=== PATIENT | male | born 2005 | race Caucasian/White ===

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

== ENCOUNTER 2025-08-20 17:47 | Emergency (ER) | payer OTHER, SELFPAY ==
--- NOTE | ~2025-08-20 | XR_ITS ---
EXAMINATION: XR shoulder LT min 2V DATE: 08/20/2025 18:25 INDICATION: Left shoulder pain. Injury. TECHNIQUE: 4 views of the left shoulder were obtained. COMPARISON: None. FINDINGS: Fracture or dislocation of the shoulder and AC joint. Soft tissues are unremarkable. IMPRESSION: 1. No acute bony abnormalities of the left shoulder including AC joint. If symptoms are localized and persistent additional evaluation can be considered with MRI. Reviewed, dictated and finalized at location T. PATIAL TECHNOLOGIST IMPRESSION: 1. No acute bony abnormalities of the left shoulder including AC joint. If symp toms are localized and persistent additional evaluation can be considered with MRI.
[2025-08-20 18:03] VITALS: BP 135/61; PULSE 57; RESP 20; TEMP 36.6; O2SAT 100
--- NOTE | 2025-08-20 18:23 | ED_ITS ---
HPI - Extremity Problem General Chief complaint: Extremity Problem,Nontraumatic Stated complaint: shoulder Patient presents to the [facility] with complaints of left shoulder pain. Noted he had an injury about a month and a half ago that was significantly pain for rule for about 2 weeks then slowly started to get better. Patient was doing gentle range of motion exercises and continuing to rest this area. Patient reports last night while wrestling with a friend did have an odd sensation in injury to the shoulder again. No medication remedies attempted for symptoms. Denies numbness or tingling in hands or fingers. Related Data Allergies Allergy/AdvReac Type Severity Reaction Status Date / Time No Known Allergies Allergy Verified 08/20/25 18:02 Review of Systems Constitutional: Constitutional: Reports as per HPI, Denies chills, Denies fatigue, Denies fever(s) and Denies weakness Eyes: Eyes: Reports no additional eye complaints Cardiovascular: Cardiovascular: Reports no additional cardiovascular complaints Respiratory: Respiratory: Reports no additional respiratory complaints Gastrointestinal: Gastrointestinal: Reports no additional gastrointestinal complaints Genitourinary: Genitourinary: Reports no additional male genitourinary complaints Musculoskeletal: Musculoskeletal: Reports as per HPI, Reports arthralgias, Denies joint swelling and Denies muscle cramps Integumentary/Breasts: Skin/Breast: Reports as per HPI, Denies pruritus, Denies erythema and Denies rash Neurologic: Reports as per HPI, Denies vertigo, Denies dizziness, Denies headache(s), Denies numbness and Denies weakness Psychiatric: Psychiatric: Reports no additional psychiatric complaints Endocrine: Endocrine: Reports no additional endocrine complaints Hematologic/Lymphatic: Hematologic/Lymphatic: Reports no additional hematologic/lymphatic complaints Allergic/Immunologic: Allergic/Immunologic: Reports no additional allergic/immunologic complaints [facility] Past Medical History Medical History Folliculitis Adult BMI 33.0-33.9 kg/sq m BMI 39.0-39.9,adult BMI 38.0-38.9,adult Family History Family History Father No problems noted. 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 Gender identity (if verbalized by the patient): Male Exam Const: General: healthy appearing and no acute distress Nutritional Appearance: well nourished Orientation/consciousness: patient oriented x3 Limitations: no limitations Neck: Neck: normal visual inspection and no lymphadenopathy Other: No vertebral tenderness, no paraspinal tenderness no trapezius tenderness Resp: Effort & Inspection: normal respiratory effort Auscultation: clear to auscultation bilaterally Cardio: Rate: regular rate Rhythm: regular rhythm Skin: General skin exam: normal color Rashes: no rashes Wounds: no wounds Extrem: Left upper extremity: shoulder/upper arm inspection abnormal, tenderness, axillary nerve sensory function normal and abnormal ROM; inspection normal, no swelling, no abrasions, no lacerations, no ecchymosis, no crepitus, no foreign bodies, no penetrating wound, no deformity and no unsual warmth Psych: Mental Status: mental status grossly normal Affect: normal affect Attitude: cooperative Course Course Level of Care: Express Care Visit Vital Signs Vital signs: Vital Signs Temperature 97.9 F 08/20/25 18:03 Pulse Rate 57 L 08/20/25 18:03 Respiratory Rate 20 08/20/25 18:03 Blood Pressure 135/61 08/20/25 18:03 Pulse Oximetry 100 08/20/25 18:03 Oxygen Delivery Room Air 08/20/25 18:03 Temperature 97.9 F 08/20/25 18:03 Pulse Rate 57 L 08/20/25 18:03 Respiratory Rate 20 08/20/25 18:03 Blood Pressure 135/61 08/20/25 18:03 Pulse Oximetry 100 08/20/25 18:03 Oxygen Delivery Room Air 08/20/25 18:03 [facility] Narrative Medical decision making narrative: x-rays ordered The patient was evaluated by myself in the express care. History is obtained from patient who is an independent historian and physical exam was performed. Available medical records were reviewed at this time. Exam findings show no acute concerns or changes; patient is non-toxic appearing and is in no distress. Patient is appropriate for outpatient treatment and follow-up. I have evaluated and discussed social determinants of health with the patient that could potentially impact subsequent diagnosis and treatment plans. Differential diagnosis and treatment plan were discussed with the patient. Patient agrees with discussion and after shared medical decision making agrees with plan of care. All questions were answered to the patient's satisfaction. Differential Diagnosis Differential Diagnosis: shoulder dislocation, shoulder sprain, internal derangement, muscle strain Medical Records I have reviewed the following patient records and this information was taken into consideration when formulating the assessment and plan.: previous labs, previous ER visits, previous hospitalizations and previous clinic visits Imaging Data Attestation: I personally reviewed and interpreted this imaging study as follows: My impression: no acute findings Radiologist's impression: IMPRESSION: 1. No acute bony abnormalities of the left shoulder including AC joint. If symptoms are localized and persistent additional evaluation can be considered with MRI. Reviewed, dictated and finalized at location T. IC PATTERN GRADER Discharge Plan Discharge Clinical Impression: Injury of left shoulder Patient Disposition: Home Condition: Stable Instructions: Antibiotic Form, Shoulder Sprain (ED), Exercise Safety (ED), Rotator Cuff Injury Exercises (DC) Additional Instructions: Xray showed no fracture. Minimize activities that aggravate the condition The RICE protocol. Follow the RICE protocol as soon as possible after your injury: Rest your affected limb by using the sling as knee Ice should be immediately applied to keep the swelling down. It can be used for 20 to 30 minutes, three or four times daily. Do not apply ice directly to your skin. Gentle range of motion exercises as tolerated. Elevate affected area above the level of your heart if possible as often as possible during the first 48 hours then as needed for increased swelling. Medication: Nonsteroidal anti-inflammatory drugs (NSAIDs) such as ibuprofen and naproxen can help control pain and swelling. Because they improve function by both reducing swelling and controlling pain, they are a better option for mild sprains than narcotic pain medicines. Please schedule a follow-up visit with your personal physician for further evaluation and treatment within 1week OR If your symptoms persist, change or worsen significantly before you can contact your personal physician then please, without delay, go to the emergency department for further evaluation. Patient Language: Citizen Of [place] Prescriptions: New naproxen 500 mg tablet 500 mg PO BID PRN (Reason: pain) Qty: 30 0RF Follow-up/Referrals: Santi Jung MD [Primary Care Provider, [facility]] Time of Disposition: 18:34
--- OUTSIDE RECORDS SUMMARY | 2025-08-20 19:34 | XMS_ITS | Clinical Summary ---
Author Organization [facility] Address [address] [place] [address] Care Team Providers Care Steam Box Hand Name Role Phone Santi Jung MD Primary Care Provider [phone] Source Comments [facility],non-[facility] Affiliates and Associated Physician Practices is amultiple site organization consisting of ambulatory clinics and hospital sitesin [place], [place], [place] and [place]. This disclosure is being madepursuant to the Care Everywhere program and may not contain all information available regarding this patient. Last updated 18.[facility] Social History Tobacco Use Types Packs/Day Years Used Date Smoking Tobacco: Never Assessed Sex and Gender Information Value Date Recorded Sex Assigned at Not on file Legal Sex Male 1:54 PM CDT Gender Identity Not on file Sexual Orientation Not on file Last Filed Vital Signs Vital Sign Reading Time Taken Comments Blood Pressure - - Pulse - - Temperature - - Respiratory Rate - - Oxygen Saturation - - Inhaled Oxygen Concentration - - Weight 143.6 kg (316 lb 9.3 oz) 06/15/2021 1:00 PM CDT Height 183.5 cm (6' 0.24) 06/15/2021 1:00 PM CD T Body Mass Index 42.65 06/15/2021 1:00 PM CDT Plan of Treatment Health Maintenance Due Date Last Done Comments HIV SCREENING 2020 HPV VACCINE (1 - Male 3-dose series) 2020 MENINGOCOCCAL (Group B) VACC INE SHARED DECISION-MAKING (1 of 2 - Standard) 2021 HEPATITIS C SCREENING 07/24/2023 DTAP/TDAP/TD VACCINES (1 - Tdap) 2024 HEPATITIS B VACCINE (1 of 3 - 19+ 3-dose series) 2024 DEPRESSION SCREENING 09/10/2024 COVID-19 VACCINE (1 - 2024-2 6 season) 2025 INFLUENZA VACCINE (#1) 2025 ZOSTER VACCINE (1 of 2) 2055 HIB VACCINE Aged Out No longer eligi ble based on patient's age to complete this topic MENINGOCOCCAL GROUPS A/C/Y/W VACCINE Aged Out No longer eligible b ased on patient's age to complete this topic PNEUMOCOCCAL VACCINE Aged Out No long er eligible based on patient's age to complete this topic Insurance [facility] Care Teams Steam Box Hand Relationship Specialty Start Date End Date Santi Jung MD [address] [place] [address] PCP - General Family Medicine 06/13/21
== END 2025-08-20 18:38 | disposition home or self-care (01) ==
PROVIDERS: Emergency Provider Nurse Practitioner Family; PCP Family Medicine
DX: S49.92XA Unspecified injury of left shoulder and upper arm, initial encounter (principal); X58.XXXA Exposure to other specified factors, initial encounter; Y93.83 Activity, rough housing and horseplay
CPT/HCPCS: 73030; 99213; A4565; G0463